=== PATIENT | female | born 1995 | race African-American/Black ===

== ENCOUNTER 2020-09-06 10:47 | Emergency (ER) | payer OTHER ==
[~2020-09-06] VITALS: Ht 154.9 cm; Wt 70.3 kg
[2020-09-06] MEDS ORDERED: PROAIR HFA8.5 GM INH (11:07)
[2020-09-06 11:30] LABS: URINE BLOOD TRACE (Negative); URINE CLARITY CLEAR; URINE COLOR YELLOW; URINE GLUCOSE-RANDOM* NEGATIVE (Negative); URINE KETONES 3+ (Negative); URINE LEUKOCYTES-REFLEX NEGATIVE (Negative); URINE NITRITE-REFLEX NEGATIVE (Negative); URINE PROTEIN (DIPSTICK) TRACE (Negative); URINE SPECIFIC GRAVITY >= 1.030 (1.005-1.035); URINE UROBILINOGEN 0.2 E.U./dl (0.2-1.0)
[2020-09-06 11:38] LABS: ICTOTEST (BILI CONFIRMATORY) Negative (Negative); URINE BILIRUBIN NEGATIVE (Negative)
[2020-09-06 11:42] LABS: URINE REDUCING SUBSTANCE NEGATIVE
[2020-09-06 11:47] LABS: CALCIUM 9.7 mg/dL (8.5-10.1); CREATININE 0.8 mg/dL (0.6-1.0); POTASSIUM 4.2 mmol/L (3.5-5.1)
[2020-09-06 11:55] LABS: ALBUMIN 4.2 g/dL (3.4-5.0); TOTAL BILIRUBIN 1.3 mg/dL (0.2-1.0); TOTAL PROTEIN 9.1 g/dL (6.4-8.2)
[2020-09-06 12:52] LABS: AMP/METHAMP Negative (Negative); BARBITURATES Negative (Negative); BENZODIAZEPINES Negative (Negative); COCAINE Negative (Negative); METHADONE Negative (Negative); OPIATES Negative (Negative); PCP Negative (Negative)
[2020-09-06 13:05] LABS: BE(vivo) -2.5 mmol/L (-2 to +3); HCO3 19.4 mmol/L (22.0-26.0); PCO2 VENOUS 26.5 mmHg (41.0-51.0); PO2 VENOUS 31.4 mmHg (35.0-45.0)
[2020-09-06 13:15] LABS: ABSOLUTE NEUTROPHILS 3.6 thou/uL (1.4-8.2); BASOPHILS 0.5 % (0.0-2.0); EOSINOPHILS 0.2 % (0.0-3.0); HEMATOCRIT 39.4 % (37.0-47.0); HEMOGLOBIN 12.8 gm/dL (12.0-15.0); LYMPHOCYTES 36.8 % (24.0-44.0); MCH 26.8 pg (26.0-34.0); MCHC 32.5 g/dL (28.0-37.0); MCV 82.4 fL (80.0-100.0); MONOCYTES 9.4 % (1.0-8.0); PLATELET COUNT 285 thou/uL (150-400); POLYS 53.1 % (36.0-66.0); RBC 4.79 mil/uL (4.20-5.00); RDW 17.8 % (10.5-14.5); WBC 6.8 thou/uL (4.0-11.0)
[2020-09-06 13:33] LABS: SALICYLATE < 2.8 mg/dL (2.8-20.0)
[2020-09-06] MEDS ORDERED: PHENERGAN 25 MG25 M1 PO (15:48)
[2020-09-06 16:00] VITALS: BP 110/66
== END 2020-09-06 16:00 | disposition home or self-care (01) ==
LOC: ER 10:47
PROVIDERS: Physician Assistant
DX: R10.13 Epigastric pain (principal); R11.2 Nausea with vomiting, unspecified

== ENCOUNTER 2020-10-12 17:32 | Inpatient (IN) | payer OTHER ==
[~2020-10-12] VITALS: Ht 154.9 cm; Wt 70.3 kg
[~2020-10-12 17:32] MED LIST: PHENERGAN 25 MG25 M1 PO; PROAIR HFA8.5 GM INH
[2020-10-12 17:52] VITALS: BP 117/64
[2020-10-12 18:48] LABS: URINE BILIRUBIN NEGATIVE (Negative); URINE BLOOD NEGATIVE (Negative); URINE CLARITY CLEAR; URINE COLOR YELLOW; URINE GLUCOSE-RANDOM* NEGATIVE (Negative); URINE KETONES 2+ (Negative); URINE NITRITE-REFLEX NEGATIVE (Negative); URINE PROTEIN (DIPSTICK) TRACE (Negative); URINE UROBILINOGEN 0.2 E.U./dl (0.2-1.0)
[2020-10-12 18:50] LABS: ABSOLUTE NEUTROPHILS 9.3 thou/uL (1.4-8.2); BASOPHILS 0.3 % (0.0-2.0); HEMATOCRIT 33.9 % (37.0-47.0); HEMOGLOBIN 10.9 gm/dL (12.0-15.0); LYMPHOCYTES 10.8 % (24.0-44.0); MCH 26.3 pg (26.0-34.0); MCV 82.3 fL (80.0-100.0); MONOCYTES 3.2 % (1.0-8.0); PLATELET COUNT 314 thou/uL (150-400); POLYS 85.7 % (36.0-66.0); RBC 4.12 mil/uL (4.20-5.00); RDW 18.1 % (10.5-14.5); WBC 10.8 thou/uL (4.0-11.0)
[2020-10-12 18:52] LABS: URINE LEUKOCYTES-REFLEX 1+ (Negative)
[2020-10-12 18:59] LABS: CALCIUM 9.2 mg/dL (8.5-10.1); CREATININE 1.1 mg/dL (0.6-1.0); POTASSIUM 3.6 mmol/L (3.5-5.1)
[2020-10-12 19:03] LABS: BACTERIA-REFLEX 1-9 Few /HPF (None Seen); CASTS None Seen /LPF (None Seen); SQUAMOUS 4-10 Moderate /LPF (0-3); URINE RBC 1-2 Rare /HPF (NONE SEEN); URINE WBC-REFLEX 6-15 Few /HPF (0-5)
[2020-10-12 19:04] LABS: TOTAL BILIRUBIN 0.6 mg/dL (0.2-1.0); TOTAL PROTEIN 8.6 g/dL (6.4-8.2)
[2020-10-12 19:04] LABS: AMORPHOUS URATES Few /LPF (None Seen)
[2020-10-12] MEDS ORDERED: CEPHALEXIN500 MG PO (21:46)
[2020-10-12] MEDS ORDERED: PHENERGAN 25 MG25 M1 PO (21:46)
[2020-10-12 22:26] LABS: AMP/METHAMP Negative (Negative); BARBITURATES Negative (Negative); BENZODIAZEPINES Negative (Negative); COCAINE Negative (Negative); METHADONE Negative (Negative); OPIATES Negative (Negative); PCP Negative (Negative)
[2020-10-13 00:20] VITALS: BP 137/70
[2020-10-13 00:52] VITALS: BP 112/60
[2020-10-13 04:27] VITALS: BP 124/68
[2020-10-13 07:55] VITALS: BP 133/77
[2020-10-13 09:21] LABS: HEMATOCRIT 29.7 % (37.0-47.0); HEMOGLOBIN 9.6 gm/dL (12.0-15.0); MCH 26.5 pg (26.0-34.0); MCHC 32.4 g/dL (28.0-37.0); MCV 81.8 fL (80.0-100.0); RBC 3.63 mil/uL (4.20-5.00); RDW 18.3 % (10.5-14.5); WBC 8.3 thou/uL (4.0-11.0)
[2020-10-13 09:39] LABS: CALCIUM 8.3 mg/dL (8.5-10.1); CREATININE 0.9 mg/dL (0.6-1.0); POTASSIUM 3.7 mmol/L (3.5-5.1)
[2020-10-13 09:58] LABS: % SATURATION 15 % (20-39); IRON 58 ug/dL (50-170); TIBC 378 ug/dL (250-450)
[2020-10-13] MEDS ORDERED: PHENERGAN 25 MG25 M1 PO (10:54)
--- NOTE | 2020-10-13 11:43 | NUR ---
Assumed pt care this am vs stable, no nausea or vomiting noted. Pt has been mostly as sleep during the shift. Steady on her gait , was able to use the toilet , standy by. Seen by MD, diet advanced to full liquids, pt is to be dc later on in the day. POC followed with no signs or verbalizations of distress noted.
[2020-10-13 13:51] VITALS: BP 133/77
== END 2020-10-13 17:00 | disposition home or self-care (01) | DRG 394 ==
LOC: ER 17:32 → EROBS 22:39 → 4W 10-13 00:15
PROVIDERS: Internal Medicine Gastroenterology; Nurse Practitioner Family; Physician Assistant; ADMIT Internal Medicine; ATTEND Internal Medicine
DX: R11.15 Cyclical vomiting syndrome unrelated to migraine (principal); N39.0 Urinary tract infection, site not specified; J45.909 Unspecified asthma, uncomplicated; F10.10 Alcohol abuse, uncomplicated; Y90.9 Presence of alcohol in blood, level not specified; F12.10 Cannabis abuse, uncomplicated; D64.9 Anemia, unspecified; Z79.899 Other long term (current) drug therapy

== ENCOUNTER 2020-10-16 21:19 | Emergency (ER) | payer OTHER ==
[~2020-10-16] VITALS: Ht 154.9 cm; Wt 68.0 kg
[~2020-10-16 21:19] MED LIST changes: +CEPHALEXIN500 MG PO
[2020-10-16 23:16] LABS: AMP/METHAMP Negative (Negative); BARBITURATES Negative (Negative); BENZODIAZEPINES Negative (Negative); COCAINE Negative (Negative); METHADONE Negative (Negative); OPIATES Negative (Negative); PCP Negative (Negative)
[2020-10-16 23:34] LABS: ABSOLUTE NEUTROPHILS 3.8 thou/uL (1.4-8.2); BASOPHILS 0.7 % (0.0-2.0); EOSINOPHILS 0.2 % (0.0-3.0); HEMOGLOBIN 11.3 gm/dL (12.0-15.0); MCH 26.2 pg (26.0-34.0); MCHC 31.4 g/dL (28.0-37.0); MCV 83.2 fL (80.0-100.0); MONOCYTES 12.1 % (1.0-8.0); PLATELET COUNT 339 thou/uL (150-400); RBC 4.33 mil/uL (4.20-5.00); RDW 18.3 % (10.5-14.5); WBC 8.3 thou/uL (4.0-11.0)
[2020-10-16 23:38] LABS: CALCIUM 9.4 mg/dL (8.5-10.1); CREATININE 1.2 mg/dL (0.6-1.0); POTASSIUM 3.5 mmol/L (3.5-5.1)
[2020-10-16 23:44] LABS: ALBUMIN 3.8 g/dL (3.4-5.0); TOTAL BILIRUBIN 1.2 mg/dL (0.2-1.0); TOTAL PROTEIN 8.1 g/dL (6.4-8.2)
[2020-10-17 02:20] LABS: URINE BILIRUBIN 1+ (Negative); URINE BLOOD NEGATIVE (Negative); URINE CLARITY CLEAR; URINE COLOR YELLOW; URINE GLUCOSE-RANDOM* NEGATIVE (Negative); URINE KETONES 3+ (Negative); URINE LEUKOCYTES-REFLEX NEGATIVE (Negative); URINE NITRITE-REFLEX NEGATIVE (Negative); URINE PROTEIN (DIPSTICK) TRACE (Negative); URINE SPECIFIC GRAVITY >= 1.030 (1.005-1.035); URINE UROBILINOGEN 0.2 E.U./dl (0.2-1.0)
[2020-10-17] MEDS ORDERED: ZOFRAN ODT4 MG PO (02:40)
[2020-10-17 02:45] VITALS: BP 136/78
== END 2020-10-17 02:48 | disposition home or self-care (01) ==
LOC: ER 21:19
PROVIDERS: Emergency Medicine
DX: E86.0 Dehydration (principal); R10.84 Generalized abdominal pain; R11.0 Nausea; J45.909 Unspecified asthma, uncomplicated

== ENCOUNTER 2020-10-18 19:02 | Emergency (ER) | payer OTHER ==
[~2020-10-18] VITALS: Ht 154.9 cm; Wt 74.8 kg
[~2020-10-18 19:02] MED LIST changes: +ZOFRAN ODT4 MG PO
[2020-10-18 20:16] LABS: URINE BILIRUBIN NEGATIVE (Negative); URINE BLOOD NEGATIVE (Negative); URINE CLARITY SL HAZY; URINE COLOR YELLOW; URINE GLUCOSE-RANDOM* NEGATIVE (Negative); URINE KETONES 2+ (Negative); URINE LEUKOCYTES-REFLEX 2+ (Negative); URINE NITRITE-REFLEX NEGATIVE (Negative); URINE PROTEIN (DIPSTICK) NEGATIVE (Negative); URINE UROBILINOGEN 0.2 E.U./dl (0.2-1.0)
[2020-10-18 20:17] LABS: ABSOLUTE NEUTROPHILS 3.1 thou/uL (1.4-8.2); BASOPHILS 0.6 % (0.0-2.0); EOSINOPHILS 1.3 % (0.0-3.0); HEMOGLOBIN 11.4 gm/dL (12.0-15.0); LYMPHOCYTES 43.8 % (24.0-44.0); MCHC 32.5 g/dL (28.0-37.0); MCV 83.2 fL (80.0-100.0); MONOCYTES 10.9 % (1.0-8.0); PLATELET COUNT 278 thou/uL (150-400); POLYS 43.4 % (36.0-66.0); RBC 4.21 mil/uL (4.20-5.00); RDW 18.7 % (10.5-14.5)
[2020-10-18 20:21] LABS: SQUAMOUS 0-3 Few /LPF (0-3); URINE RBC None Seen /HPF (NONE SEEN); URINE WBC-REFLEX 0-5 Rare /HPF (0-5)
[2020-10-18 20:22] LABS: BACTERIA-REFLEX 1-9 Few /HPF (None Seen); CASTS None Seen /LPF (None Seen); CRYSTALS None Seen /LPF (None Seen)
[2020-10-18 20:34] LABS: CREATININE 1.2 mg/dL (0.6-1.0)
[2020-10-18 20:39] LABS: ALBUMIN 3.7 g/dL (3.4-5.0); TOTAL BILIRUBIN 0.9 mg/dL (0.2-1.0); TOTAL PROTEIN 7.8 g/dL (6.4-8.2)
[2020-10-19 01:09] VITALS: BP 142/73
== END 2020-10-19 01:10 | disposition home or self-care (01) ==
LOC: ER 19:02
PROVIDERS: Emergency Medicine
DX: R10.11 Right upper quadrant pain (principal); R10.12 Left upper quadrant pain; R11.2 Nausea with vomiting, unspecified; F12.90 Cannabis use, unspecified, uncomplicated; J45.909 Unspecified asthma, uncomplicated